=== PATIENT | female | born 2000 | race Caucasian/White ===

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

== ENCOUNTER 2022-08-30 17:30 | Outpatient (RCR) | payer OTHER, SELFPAY ==
--- NOTE | 2022-08-02 19:06 | HP.PTEVAL_ITS ---
Patient's Visit Information POPEYE IRIZARRY is a 22 year old F referred to Physical Therapy by Dr. Katiana Fuller MD with a diagnosis of ANTERIOR KNEE PAIN. Date of Evaluation: 08/02/22 Physical Therapist: Jaguar Rocha PT, Cert MDT, OCS - Visit Plan Frequency: 2x /Week Duration: 4 Weeks Plan: PT INTERVETIONS FLEXABLIRTY ,PRES QUADS/HAMS/HIP ,CLOSED CHAIN ,FUNCTION STRENGTHENING AND PROPRIOCEPTION - Subjective This 22 y/o female presents to physical therapy with bilateral knee pain. This patient has had knee pain ~ 1 year. Patient symptoms where pronounced during activity ex's and running/jumping . Patient pain located lateral lateral inferior patella. Seen DR recommended PT. No x-rays and no medication. Aggravating squatting/kneeling ,stairs . Alleviating factors rest. Patient denies numbness tingling. Patient sleeping good. Patient was involved in sports in . Patient noticed pain referee. Patient had pain during and alleviates overtime. Patient has stiffness with extended sitting. Patient pain affects QOL and function and sports. SOCAIL: LessThan[employer]. 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 NEURO: intact. PALAPTION: unremarkable. GAIT: reciprocal pattern. AROM: 0-135 supine knee flexion. MMT: peak force hip right abduction 20.5 ,left 21.3 ,hip flexion right 32.7 ,left 32.8 ,quads right 27.7 ,left 26.8 ,hamstrings right 27.8,left 28.8. PATELLA TRACKING: lateral deviation. FLEXABLITY : hamstrings min tight ,quadriceps mild tight - Special Tests R Knee Colt - Meniscus: Negative R Knee Valgus - MCL: Negative R Knee Varus - LCL: Negative R Knee Patellar Apprehension - PFS: Positive R Knee Patellar Grind - PFS: Positive L Knee Colt - Meniscus: Negative L Knee Valgus - MCL: Negative L Knee Varus - LCL: Negative L Knee Patellar Apprehension - PFS: Positive L Knee Patellar Grind - PFS: Positive - Balance/Special Test Scores Lower Extremity Functional Score: 48 - Goals Goal 1:: Patient to be I with HEP Goal Time Frame: 4-6 Weeks Goal 2:: Patient to demonstrate 70% improvement with decrease pain and improved function Goal Time Frame: 4-6 Weeks Goal 3:: Patient to improve peak force quads/hams/hip 10 to improve function. Goal Time Frame: 4-6 Weeks Goal 4:: Patient to improve quick dash by 5-10 points to improve QOL and function Goal Time Frame: 4-6 Weeks Goal 5:: Patient to be able to squat /kneel/run with min c/o of pain Goal Time Frame: 4-6 Weeks - Rehabilitation Potential Physical Therapy Diagnosis: This patient has bilateral anterior knee pain from patellofemoral syndrome due to lateral tracking ,hip/quads weakness patella Sunita valgus knee with squatting kneeling and running thus benefit from skilled PT Rehabilitation Potential: Good - Anticipated Interventions Patient/Client Instruction: Educate patient on: Condition, Plan of Care For the Purpose of:: To decrease pain, To increase ROM, To improve muscle performance and motor function, To improve ability to perform ADL's, To increase tolerance to activity/condition/position, To improve ability of physical actions for home/community/work/leisure, To improve health of tissue, To decrease soft tissue restriction, To increase flexibility/ROM, To improve health and function Therapeutic Exercise to Include: Strength training, Endurance training, Balance training, Postural training, Flexibilty training, Active ROM For the Purpose of:: To decrease pain, To increase ROM, To improve muscle performance and motor function, To improve ability to perform ADL's, To increase tolerance to activity/condition/position, To improve ability of physical actions for home/community/work/leisure, To improve health of tissue, To decrease soft tissue restriction, To increase flexibility/ROM Other: REFEEING Thank you for the opportunity to evaluate your patient. For Medicare and Medicare HMO plans, please review the plan of care and approve it. It will need to be FAXED BACK to us at [phone] for Medicare purposes. For Medicare only, by signing this I certify the plan of care. Please let me know if there are questions or concerns regarding this plan of care. Physician Signature: Date:
--- NOTE | 2022-08-30 18:03 | HP.PTDCSUM ---
It has been my pleasure to treat POPEYE IRIZARRY referred by Dr. Katiana Fuller MD, with the diagnosis of ANTERIOR KNEE PAIN for a total of 8 visit(s). Discharge Date: 08/30/22 Please see the following information for a summary of their discharge status. Subjective: DOING WELL READY FOR D/C Bilateral Knee Pain Intensity (Out of 10): 0 % Improvement: 90 Objective/Function: POSTURE: knee valgus , patella luan ,pes planus , genu recurvatum. NEURO: intact. PALAPTION: unremarkable. GAIT: reciprocal pattern. AROM: 0-135 supine knee flexion. MMT: peak force hip right abduction 20.5 ,left 21.3 ,hip flexion right 42.7 ,left 42.8 ,quads right 37.7 ,left 27.8 ,hamstrings right 37.8,left 38.8. PATELLA TRACKING: lateral deviation. FLEXABLITY : hamstrings min tight ,quadriceps mild tight Goal 1:: Patient to be I with HEP Goal Progress: Goal Met Goal 2:: Patient to demonstrate 70% improvement with decrease pain and improved function Goal Progress: Goal Met Goal 3:: Patient to improve peak force quads/hams/hip 10 to improve function. Goal Progress: Goal Met Goal 4:: Patient to improve quick dash by 5-10 points to improve QOL and function Goal Progress: Goal Met Goal 5:: Patient to be able to squat /kneel/run with min c/o of pain Plan: D/C TO HOME EX'S Discharge Comments: HEP If there are questions or concerns regarding this patient's physical therapy, please feel free to call me at [phone]. Thank you for the referral of this patient. Sincerely, Jaguar Rocha, PT, Cert MDT, OCS Balance/Gait/Functional tests - Balance/Special Test Scores Lower Extremity Functional Score: 75
== END 2022-08-30 19:00 | disposition home or self-care (01) ==
LOC: PT 17:30
PROVIDERS: PCP Pediatrics; Referring Provider Pediatrics; Visit Provider Pediatrics
DX: M25.569 Pain in unspecified knee (principal)
CPT/HCPCS: 97110; 97161; 97530